=== PATIENT | male | born 1985 | race Caucasian/White ===

== ENCOUNTER 2023-06-05 13:49 | Inpatient (IN) ==
--- NOTE | 2023-06-05 14:40 | Emergency Department Note ---
Impression & Plan Status epilepticus, Epileptic seizure, Intractable seizure disorder ED Provider Note NAME: TOMMY [id number] JOSE MANUEL AGE: 37 SEX: M : 1985 ARRIVES VIA: Ambulance INFORMANT: Patient ED PROVIDER(S): Noah Rene DO CHIEF COMPLAINT: seizure HPI: Patient is a 37-year-old male with a past medical history of seizures who presents to the ER for a seizure. Patient notes that he has had seizure for multiple years. He recently stopped taking his Keppra and has not taken it for the past week. Last seizure was about a week ago. The seizure was consistent with his typical seizure. He notes he passed out and he became rigid per report from EMS. This lasted for about 7 minutes and was transferred to the ER. He denies any headache or change in vision. He admits to some paresthesias on the right side of his body which is typical for all of the seizures and generally last for a day. He denies any weakness or numbness as he can feel he does have some tingling. He does have some back pain which started after the seizure. He did not fall. ADDITIONAL HISTORY OBTAINED: Per HPI Chronic Medical/Social Conditions Affecting Care: Per HPI PAST MEDICAL HISTORY:See Below PAST SURGICAL HISTORY:See Below FAMILY HISTORY:See Below SOCIAL HISTORY:See Below HOME MEDICATIONS:See Below ALLERGIES:See Below VITALS:See Below PHYSICAL EXAMINATION: GENERAL: Sitting up in bed, alert, well appearing, well nourished, no distress, non-toxic EYE EXAM: normal conjunctiva. PERRL and EOM's grossly intact. OROPHARYNX: mucous membranes are moist NECK: supple, no nuchal rigidity, no adenopathy, non-tender LUNGS: Clear to auscultation. Normal chest wall mechanics HEART: no murmurs, S1 normal and S2 normal ABDOMEN: abdomen soft, non-tender, normo-active bowel sounds, no masses, no rebound or guarding. BACK: Back is symmetrical on inspection and there is no deformity, no midline tenderness, no CVA tenderness. SKIN: no rashes and no bruising UPPER EXTREMITIES: upper extremities are grossly normal. LOWER EXTREMITIES: No pitting edema. NEURO EXAM: Normal sensorium, cranial nerves II-XII intact, normal speech, no weakness of arms, no weakness of legs. No drift. Finger to nose intact. Gross sensation intact. MEDICAL DECISION MAKING: Patient is a 37-year-old male with a past medical history of epilepsy who has not been taking his medications for the past week. He presents following a 5 to 7-minute seizure. IV was established blood work was obtained. He is completely back to baseline at this time with exception of right-sided paresthesias which is typical for him. IV was established blood work is obtained. Labs show no significant leukocytosis or anemia. BMP along LFTs bilirubin was unremarkable. Troponin was negative. Lipase normal. COVID-negative. CT of the head was unremarkable. He had another seizure while in the ER and was given Ativan and it broke just prior to dose of Ativan. He did return to baseline. He was given IV Keppra. He was given 2 g Keppra IV. He was discussed with the hospitalist and admitted for status epilepticus. Consults/Care Managements Discussions: Per [facility] Triage Nursing notes reviewed. Limited review of prior medical records performed Vital Signs: reviewed and remarkable for tachy Differential diagnosis: Differential diagnosis includes etiologies such as infection, hypoglycemia, electrolyte abnormalities, cardiac sources, intracerebral event, trauma, toxicologic, neurologic, as well as others were entertained. ER treatment provided: See below Diagnostics interpreted by me include EKG and cardiac monitoring as listed below: -Cardiac Monitoring: An order was placed for continuous cardiac monitoring. The monitor shows a rate of 101 with sinus rhythm. -ECG: Sinus rhythm rate of 107 Normal axis No PVCs QTc 451 -Laboratory studies:Interpreted by me as stated above in MDM and shown below. Imaging studies: Xrays: As interpreted by me: X-rays of lumbar spine showed no acute fracture Verbal AP upright 1 view of the chest shows no acute infiltrate CTs show: CT of the head was negative Procedures:none Critical Care: I have personally spent 32 minutes of critical care time in the direct management of this patient. This includes bedside care, interpretation of diagnostic studies, and testing, discussion with consultants, patient, and family members, and other required patient management activities. This 32 minutes is in excess of all separately billable procedures. Past Med/Surg History Medical History GERD (gastroesophageal reflux disease) HLD (hyperlipidemia) HTN (hypertension) TBI (traumatic brain injury) Seizure disorder Social History Smoking Status: Former smoker Feels Safe at Home: Yes Allergies Allergies Allergy/AdvReac Type Severity Reaction Status Date / Time aripiprazole [From Abilify] Allergy Severe ON SCI Verified 06/05/23 16:04 [facility] Fish Containing Products Allergy Severe ON SCI Verified 06/05/23 16:04 [facility] Home Meds Home Medications Medication Instructions Recorded Confirmed atorvastatin 10 mg tablet (Lipitor) 10 mg PO HS 06/05/23 06/05/23 famotidine 20 mg tablet (Pepcid) 20 mg PO HS 06/05/23 06/05/23 levetiracetam 500 mg tablet 500 mg PO BID 06/05/23 06/05/23 (Keppra) lisinopril 10 mg tablet 10 mg PO HS 06/05/23 06/05/23 venlafaxine 100 mg tablet 100 mg PO HS 06/05/23 06/05/23 Results & Data (ED) Vital Signs Vital Signs - 24 hr 06/05/23 14:01 06/05/23 14:16 06/05/23 14:22 Temperature 37 C Temperature Source Oral Pulse Rate 108 H 110 H 110 H Pulse Rate [Apical] Pulse Rate from SpO2 Sensor 110 H Pulse Rhythm Respiratory Rate 18 15 Respiratory Effort / Characteristics Non-Labored Respiratory Depth Normal Respiratory Pattern Blood Pressure 138/76 Blood Pressure [Right Arm] Blood Pressure Mean 96 Blood Pressure Mean [Right Arm] Pulse Oximetry 95 95 Oxygen Delivery Method Room Air Oxygen Flow Rate Sepsis Recent Fever Within 48 Hours No Sepsis New/Unexplained Change in Mental Status N/A Sepsis Action Taken by Nursing No Action Required Oxygen Flow Rate - Titration Pulse Oximetry Post Tiitration 06/05/23 14:30 06/05/23 14:45 06/05/23 15:05 Temperature Temperature Source Pulse Rate 112 H 103 H 107 H Pulse Rate [Apical] Pulse Rate from SpO2 Sensor 110 H 105 H Pulse Rhythm Respiratory Rate 18 22 21 Respiratory Effort / Characteristics Respiratory Depth Respiratory Pattern Blood Pressure Blood Pressure [Right Arm] Blood Pressure Mean Blood Pressure Mean [Right Arm] Pulse Oximetry 94 96 Oxygen Delivery Method Oxygen Flow Rate Sepsis Recent Fever Within 48 Hours Sepsis New/Unexplained Change in Mental Status Sepsis Action Taken by Nursing Oxygen Flow Rate - Titration Pulse Oximetry Post Tiitration 06/05/23 15:15 06/05/23 15:15 06/05/23 15:22 Temperature Temperature Source Pulse Rate 106 H 100 H Pulse Rate [Apical] Pulse Rate from SpO2 Sensor Pulse Rhythm Regular Respiratory Rate 20 16 Respiratory Effort / Characteristics Respiratory Depth Respiratory Pattern Blood Pressure 127/89 Blood Pressure [Right Arm] Blood Pressure Mean 95 Blood Pressure Mean [Right Arm] Pulse Oximetry 96 Oxygen Delivery Method Room Air Oxygen Flow Rate Sepsis Recent Fever Within 48 Hours Sepsis New/Unexplained Change in Mental Status Sepsis Action Taken by Nursing Oxygen Flow Rate - Titration Pulse Oximetry Post Tiitration 06/05/23 15:22 06/05/23 15:30 06/05/23 15:30 Temperature Temperature Source Pulse Rate 98 H 92 H Pulse Rate [Apical] Pulse Rate from SpO2 Sensor 98 H 95 H Pulse Rhythm Respiratory Rate 19 22 Respiratory Effort / Characteristics Respiratory Depth Respiratory Pattern Blood Pressure 144/90 H Blood Pressure [Right Arm] Blood Pressure Mean 101 Blood Pressure Mean [Right Arm] Pulse Oximetry 94 95 Oxygen Delivery Method Oxygen Flow Rate Sepsis Recent Fever Within 48 Hours Sepsis New/Unexplained Change in Mental Status Sepsis Action Taken by Nursing Oxygen Flow Rate - Titration Pulse Oximetry Post Tiitration 06/05/23 15:45 06/05/23 16:02 06/05/23 16:03 Temperature Temperature Source Pulse Rate 102 H 101 H 105 H Pulse Rate [Apical] Pulse Rate from SpO2 Sensor 98 H 99 H 102 H Pulse Rhythm Respiratory Rate 15 22 16 Respiratory Effort / Characteristics Respiratory Depth Respiratory Pattern Blood Pressure Blood Pressure [Right Arm] Blood Pressure Mean Blood Pressure Mean [Right Arm] Pulse Oximetry 97 96 96 Oxygen Delivery Method Oxygen Flow Rate Sepsis Recent Fever Within 48 Hours Sepsis New/Unexplained Change in Mental Status Sepsis Action Taken by Nursing Oxygen Flow Rate - Titration Pulse Oximetry Post Tiitration 06/05/23 16:03 06/05/23 16:15 06/05/23 16:30 Temperature Temperature Source Pulse Rate 100 H 95 H Pulse Rate [Apical] Pulse Rate from SpO2 Sensor 100 H 98 H Pulse Rhythm Respiratory Rate 23 20 Respiratory Effort / Characteristics Respiratory Depth Respiratory Pattern Blood Pressure 139/98 Blood Pressure [Right Arm] Blood Pressure Mean 115 Blood Pressure Mean [Right Arm] Pulse Oximetry 96 97 Oxygen Delivery Method Oxygen Flow Rate Sepsis Recent Fever Within 48 Hours Sepsis New/Unexplained Change in Mental Status Sepsis Action Taken by Nursing Oxygen Flow Rate - Titration Pulse Oximetry Post Tiitration 06/05/23 16:30 06/05/23 16:45 06/05/23 17:00 Temperature Temperature Source Pulse Rate 106 H Pulse Rate [Apical] Pulse Rate from SpO2 Sensor 108 H Pulse Rhythm Respiratory Rate 19 Respiratory Effort / Characteristics Respiratory Depth Respiratory Pattern Blood Pressure 117/83 132/95 Blood Pressure [Right Arm] Blood Pressure Mean 98 103 Blood Pressure Mean [Right Arm] Pulse Oximetry 95 Oxygen Delivery Method Oxygen Flow Rate Sepsis Recent Fever Within 48 Hours Sepsis New/Unexplained Change in Mental Status Sepsis Action Taken by Nursing Oxygen Flow Rate - Titration Pulse Oximetry Post Tiitration 06/05/23 17:00 06/05/23 17:15 06/05/23 17:26 Temperature Temperature Source Pulse Rate 99 H 108 H Pulse Rate [Apical] 98 H Pulse Rate from SpO2 Sensor 99 H 106 H Pulse Rhythm Respiratory Rate 23 21 20 Respiratory Effort / Characteristics Non-Labored Respiratory Depth Normal Respiratory Pattern Blood Pressure Blood Pressure [Right Arm] 130/110 H Blood Pressure Mean Blood Pressure Mean [Right Arm] 116 Pulse Oximetry 96 96 97 Oxygen Delivery Method Room Air Oxygen Flow Rate Sepsis Recent Fever Within 48 Hours Sepsis New/Unexplained Change in Mental Status Sepsis Action Taken by Nursing Oxygen Flow Rate - Titration Pulse Oximetry Post Tiitration 06/05/23 17:27 06/05/23 17:27 06/05/23 17:30 Temperature Temperature Source Pulse Rate 92 H 101 H Pulse Rate [Apical] Pulse Rate from SpO2 Sensor 99 H 101 H Pulse Rhythm Respiratory Rate 16 17 Respiratory Effort / Characteristics Respiratory Depth Respiratory Pattern Blood Pressure 130/110 H Blood Pressure [Right Arm] Blood Pressure Mean 116 Blood Pressure Mean [Right Arm] Pulse Oximetry 91 96 Oxygen Delivery Method Oxygen Flow Rate Sepsis Recent Fever Within 48 Hours Sepsis New/Unexplained Change in Mental Status Sepsis Action Taken by Nursing Oxygen Flow Rate - Titration Pulse Oximetry Post Tiitration 06/05/23 17:30 06/05/23 17:45 06/05/23 18:00 Temperature Temperature Source Pulse Rate 105 H 105 H Pulse Rate [Apical] Pulse Rate from SpO2 Sensor 101 H 105 H Pulse Rhythm Respiratory Rate 19 21 Respiratory Effort / Characteristics Respiratory Depth Respiratory Pattern Blood Pressure 133/88 Blood Pressure [Right Arm] Blood Pressure Mean 105 Blood Pressure Mean [Right Arm] Pulse Oximetry 95 97 Oxygen Delivery Method Oxygen Flow Rate Sepsis Recent Fever Within 48 Hours Sepsis New/Unexplained Change in Mental Status Sepsis Action Taken by Nursing Oxygen Flow Rate - Titration Pulse Oximetry Post Tiitration 06/05/23 18:00 06/05/23 18:15 06/05/23 18:28 Temperature Temperature Source Pulse Rate 96 H 97 H Pulse Rate [Apical] Pulse Rate from SpO2 Sensor 94 H Pulse Rhythm Respiratory Rate 17 Respiratory Effort / Characteristics Respiratory Depth Respiratory Pattern Blood Pressure 130/91 Blood Pressure [Right Arm] Blood Pressure Mean 100 Blood Pressure Mean [Right Arm] Pulse Oximetry 96 Oxygen Delivery Method Oxygen Flow Rate Sepsis Recent Fever Within 48 Hours Sepsis New/Unexplained Change in Mental Status Sepsis Action Taken by Nursing Oxygen Flow Rate - Titration Pulse Oximetry Post Tiitration 06/05/23 19:00 06/05/23 19:47 06/05/23 21:00 Temperature Temperature Source Pulse Rate Pulse Rate [Apical] 82 79 Pulse Rate from SpO2 Sensor Pulse Rhythm Respiratory Rate 16 16 Respiratory Effort / Characteristics Non-Labored Respiratory Depth Normal Respiratory Pattern Regular Blood Pressure Blood Pressure [Right Arm] 125/77 114/75 Blood Pressure Mean Blood Pressure Mean [Right Arm] 93 88 Pulse Oximetry 98 95 96 Oxygen Delivery Method Room Air Room Air Oxygen Flow Rate 0 Sepsis Recent Fever Within 48 Hours Sepsis New/Unexplained Change in Mental Status Sepsis Action Taken by Nursing Oxygen Flow Rate - Titration 0 Pulse Oximetry Post Tiitration 95 Laboratory Data 06/05/23 14:05 06/05/23 14:05 Lab Results 06/05/23 06/05/23 Range/Units 14:05 Unknown WBC 8.05 (4.8-10.8) K/ul RBC 5.72 (4.70-6.10) M/uL Hgb 17.9 (14.0-18.0) g/dl Hct 47.1 (42.0-52.0) % MCV 82.3 (80.0-100.0) fL MCH 31.3 (25.0-34.0) pg MCHC 38.0 H (32.0-36.0) g/dL RDW Std Deviation 36.8 (36.4-46.3) fL RDW Coeff of Radha 12.4 (11.5-14.5) % Plt Count 177 (130-400) K/uL MPV 11.4 (9.4-12.4) fL Immature Gran % (Auto) 0.2 % Neut % (Auto) 69.0 % Lymph % (Auto) 21.4 % Winkler % (Auto) 7.3 % Eos % (Auto) 1.7 % Baso % (Auto) 0.4 % Neut # (Auto) 5.55 (1.40-6.50) K/uL Lymph # (Auto) 1.72 (1.20-3.40) K/uL Winkler # (Auto) 0.59 (0.11-0.59) K/uL Eos # (Auto) 0.14 (0.00-0.50) K/uL Baso # (Auto) 0.03 (0.00-0.20) K/uL Immature Gran # (Auto) 0.02 (0.01-0.20) K/uL Sodium 138 (136-145) mmol/L Potassium 3.7 (3.5-5.1) mmol/L Chloride 103 (98-107) mmol/L Carbon Dioxide 26 (21-32) mmol/L Anion Gap 9 (3-11) BUN 15 (6-23) mg/dl Creatinine 0.76 (0.6-1.4) mg/dl Est Cr Clr Drug Dosing 131.0 ml/min Est GFR ( Amer) 134.1 ml/min Est GFR (Non-Af Amer) 115.7 ml/min BUN/Creatinine Ratio 19.7 (10-20) Glucose 137 H (70-99(Fasting)) mg/dl Calcium 9.3 (8.6-10.3) mg/dl Total Bilirubin 0.7 (0.2-1.0) mg/dl AST 32 (13-39) U/L ALT 55 H (7-52) U/L Alkaline Phosphatase 66 (34-104) U/L Troponin I High Sens 3.4 (0-20) pg/ml Total Protein 7.2 (6.0-8.3) gm/dl Albumin 4.8 (3.4-5.0) gm/dl Globulin TNP Albumin/Globulin Ratio TNP Lipase 15 (11-82) U/L SARS-CoV-2, RNA, NAAT NEGATIVE (NEGATIVE) Administered Medications Discontinued Medications Sodium Chloride (Nss) 1,000 mls @ 999 mls/hr IV .Q1H1M ONE Stop: 06/05/23 15:40 Last Infusion: 06/05/23 17:30 Dose: Infused Documented By: MMLico Admin: 06/05/23 15:28 Dose: 999 mls/hr Documented By: SWD Levetiracetam (Levetiracetam 500 Mg/5 Ml Vial) 2,000 mg IV NOW STA Stop: 06/05/23 15:50 Last Admin: 06/05/23 16:09 Dose: 2,000 mg Documented By: CELINA Lorazepam (Lorazepam 1 Mg/1 Ml Syr Ed Inj Use) Confirm Administered Dose 2 mg .ROUTE .STK-MED ONE Stop: 06/05/23 15:42 Last Admin: 06/05/23 15:44 Dose: 2 mg Documented By: CELINA Lorazepam (Lorazepam 1 Mg/1 Ml Syr Ed Inj Use) Confirm Administered Dose 1 mg .ROUTE .STK-MED ONE Stop: 06/05/23 17:25 Last Admin: 06/05/23 17:48 Dose: Not Given Documented By: MORENO Imaging Data Radiologist's Impression: Chest X-Ray 06/05/23 14:23 XR chest 1V not portable CLINICAL HISTORY: Chest pain, nonspecific TECHNIQUE: Single frontal radiograph of the chest was obtained. Comparison: None available at the time of this dictation. FINDINGS: No lines and tubes are seen. The cardiomediastinal silhouette is normal. The lungs are clear. No evidence of pleural effusion or pneumothorax. IMPRESSION: No acute chest disease. ACT 112: Negative or not required by law. Electronically signed by: Ty Tong M.D. 06/05/2023 4:[address] 06/05/23 14:40 CT head/brain wo con CLINICAL HISTORY: 37 years-old Male with seizure. Acute seizure-like activity TECHNIQUE: Multiple axial CT images of the head were obtained without contrast. A dose lowering technique was utilized adhering to the principles of ALARA. CT DOSE: 547.75 mGy.cm COMPARISON: None. FINDINGS: No acute intracranial hemorrhage, midline shift, intracranial mass, hydrocephalus, territorial ischemia or abnormal extra-axial collection. The calvarium is intact. The paranasal sinuses, mastoid air cells, and middle ear cavities are clear. IMPRESSION: No acute intracranial abnormality. ACT 112: Negative or not required by law. The above report was generated using voice recognition software. It may contain grammatical, syntax or spelling errors. Electronically signed by: Tommy Ruiz M.D. 06/05/2023 3:25 PM Lumbar Spine X-Ray 06/05/23 14:40 XR lumbar spine 2-3V HISTORY: 37 years-old Male back pain acute low back pain without reported trauma COMPARISON: Chest radiograph of same day TECHNIQUE: 3 views of the lumbar spine FINDINGS: Normal soft tissues. No acute fracture, subluxation or endplate erosion. The intervertebral disc spaces are generally well maintained. No spondylolysis or spondylolisthesis. IMPRESSION: No acute osseous abnormality. ACT 112: Negative or not required by law. The above report was generated using voice recognition software. It may contain grammatical, syntax or spelling errors. Electronically signed by: Tommy Ruiz M.D. 06/05/2023 4:23 PM Discharge Plan Visit Data Chief Complaint: Seizure Stated Complaint: SEIZURE ED Provider: Noah Rene Discharge Problem: Status epilepticus, Epileptic seizure, Intractable seizure disorder Forms Stand Alone Forms: My [facility] Prescriptions Prescriptions: No Action atorvastatin [Lipitor] 10 mg Tablet 10 mg PO HS Rx Instructions: CRUSH ALL MEDS levetiracetam [Keppra] 500 mg Tablet 500 mg PO BID Rx Instructions: CRUSH ALL MEDS venlafaxine [Effexor] 100 mg Tablet 100 mg PO HS Rx Instructions: CRUSH ALL MEDS famotidine [Pepcid] 20 mg Tablet 20 mg PO HS Rx Instructions: CRUSH ALL MEDS lisinopril 10 mg Tablet 10 mg PO HS Rx Instructions: CRUSH ALL MEDS Referrals Referrals: PCP,NO [Physician] -
[2023-06-05 14:43] LABS: Basophils # (auto) 0.03 K/uL (0.00-0.20); Basophils % (auto) 0.4 %; Eosinophils # (auto) 0.14 K/uL (0.00-0.50); Eosinophils % (auto) 1.7 %; Hematocrit (blood only) 47.1 % (42.0-52.0); Hemoglobin 17.9 g/dl (14.0-18.0); Immature Granulocytes # (auto) 0.02 K/uL (0.01-0.20); Immature Granulocytes % (auto) 0.2 %; Lymphocytes # (auto) 1.72 K/uL (1.20-3.40); Lymphocytes % (auto) 21.4 %; Mean Corpuscular Hemoglobin 31.3 pg (25.0-34.0); Mean Corpuscular Volume 82.3 fL (80.0-100.0); Mean Platelet Volume 11.4 fL (9.4-12.4); Monocytes # (auto) 0.59 K/uL (0.11-0.59); Monocytes % (auto) 7.3 %; Neutrophils # (auto) 5.55 K/uL (1.40-6.50); Platelet Count 177 K/uL (130-400); RDW Coefficient of Variation 12.4 % (11.5-14.5); RDW Standard Deviation 36.8 fL (36.4-46.3); Red Blood Count 5.72 M/uL (4.70-6.10); White Blood Count 8.05 K/ul (4.8-10.8)
--- NOTE | 2023-06-05 15:26 | CT Scan Report ---
CT head/brain wo con CLINICAL HISTORY: 37 years-old Male with seizure. Acute seizure-like activity TECHNIQUE: Multiple axial CT images of the head were obtained without contrast. A dose lowering tech nique was utilized adhering to the principles of ALARA. CT DOSE: 547.75 mGy.cm COMPARISON: None. FINDINGS: No acute intracranial hemorrhage, midline shift, intracranial mass, hydrocephalus, territorial ischem ia or abnormal extra-axial collection. The calvarium is intact. The paranasal sinuses, mastoid air cells, and middle ear cavities are clear . IMPRESSION: No acute intracranial abnormality. ACT 112: Negative or not required by law. The above report was generated using voice recognition software. It may contain grammatical, syntax o r spelling errors. Electronically signed by: Tommy Ruiz M.D. 06/05/2023 3:25 PM
[2023-06-05] MEDS: SODIUM CHLORIDE 0.9% 1,000 ML IV ONE (15:28)
[2023-06-05] MEDS: LORazepam 1 MG/1 ML SYR ED Inj Use ONE ×2 (15:44→17:48)
[2023-06-05] MEDS: levETIRAcetam 500 MG/5 ML VIAL IV STA (16:09)
--- NOTE | 2023-06-05 16:24 | XRay Report ---
XR lumbar spine 2-3V HISTORY: 37 years-old Male back pain acute low back pain without reported trauma COMPARISON: Chest radiograph of same day TECHNIQUE: 3 views of the lumbar spine FINDINGS: Normal soft tissues. No acute fracture, subluxation or endplate erosion. The intervertebral disc spac es are generally well maintained. No spondylolysis or spondylolisthesis. IMPRESSION: No acute osseous abnormality. ACT 112: Negative or not required by law. The above report was generated using voice recognition software. It may contain grammatical, syntax o r spelling errors. Electronically signed by: Tommy Ruiz M.D. 06/05/2023 4:23 PM
[2023-06-05 16:25] LABS: Troponin I High Sensitivity 3.4 pg/ml (0-20)
--- NOTE | 2023-06-05 16:32 | XRay Report ---
XR chest 1V not portable CLINICAL HISTORY: Chest pain, nonspecific TECHNIQUE: Single frontal radiograph of the chest was obtained. Comparison: None available at the time of this dictation. FINDINGS: No lines and tubes are seen. The cardiomediastinal silhouette is normal. The lungs are clear. No evid ence of pleural effusion or pneumothorax. IMPRESSION: No acute chest disease. ACT 112: Negative or not required by law. Electronically signed by: Ty Tong M.D. 06/05/2023 4:31 PM
[2023-06-05 16:57] LABS: Albumin Level 4.8 gm/dl (3.4-5.0); Anion Gap 9 (3-11); Bilirubin,Total 0.7 mg/dl (0.2-1.0); Calcium 9.3 mg/dl (8.6-10.3); Carbon Dioxide 26 mmol/L (21-32); Chloride 103 mmol/L (98-107); Potassium 3.7 mmol/L (3.5-5.1); Sodium 138 mmol/L (136-145)
[2023-06-05 17:05] LABS: Alanine Aminotransferase 55 U/L (7-52); Alkaline Phosphatase 66 U/L (34-104); Aspartate Aminotransferase 32 U/L (13-39); BUN Creatinine Ratio 19.7 (10-20); Blood Urea Nitrogen 15 mg/dl (6-23); Est GFR (African American) 134.1 ml/min; Est GFR (Non-African American) 115.7 ml/min; Glucose 137 mg/dl (70-99(Fasting)); Lipase 15 U/L (11-82); Total Protein 7.2 gm/dl (6.0-8.3)
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
[2023-06-05] MEDS: GADOBUTROL 65ML VIAL IV ONE (22:17)
[2023-06-05] MEDS ORDERED: LORazepam 2 MG in SYRINGE 1 ML IV PRN (22:36)
--- NOTE | 2023-06-05 23:16 | Magnetic Resonance Report ---
Exam(s): MRI HEAD W/WO Contrast IV Amt: 7cc gadavist EXAM: MR Head Without and With Intravenous Contrast CLINICAL HISTORY: Reason for exam: recurrent seizure, eye pressure before onset. TECHNIQUE: Magnetic resonance images of the head/brain without and with intravenous contrast in multiple planes. CONTRAST: Patient received 7cc gadavist of IV contrast COMPARISON: CT brain 06/05/2023. FINDINGS: Brain: Unremarkable. No mass. No hemorrhage. No acute infarct. Ventricles: Unremarkable. No ventriculomegaly. Bones/joints: Unremarkable. No acute fracture. Soft tissues: Unremarkable. Normal enhancement following contrast administration with no enhancing lesion seen. Sinuses: Unremarkable as visualized. No acute sinusitis. Mastoid air cells: Unremarkable as visualized. No mastoid effusion. Orbits: Unremarkable as visualized. IMPRESSION: Normal MRI of the brain with no acute stroke or intracranial hemorrhage. No enhancing intracranial lesions seen. Electronically signed by: Kati Cota MD 06/05/23 23:15 PM
[2023-06-05] MEDS: FAMOTIDINE 20 MG TAB PO SCH (23:45)
[2023-06-05] MEDS: ATORVASTATIN 10 MG TAB PO SCH (23:45)
[2023-06-05] MEDS: lisinopril 10 MG TAB PO SCH (23:46)
[2023-06-05] MEDS: VENLAFAXINE HCL 50 MG TAB PO SCH (23:46)
[2023-06-05] MEDS: levETIRAcetam IV 500 MG in SODIUM CHLOR 0.9% MINI-B 100 ML IV SCH (23:46)
--- NOTE | 2023-06-06 06:01 | Electrocardiogram Report ---
Test Reason : Blood Pressure : / mmHG Vent. Rate : 107 BPM Atrial Rate : 107 BPM P-R Int : 160 ms QRS Dur : 088 ms QT Int : 338 ms P-R-T Axes : 061 058 066 degrees QTc Int : 451 ms Sinus tachycardia Otherwise normal ECG No previous ECGs available Confirmed by Martín Andrade ([id number]) on 06/06/2023 6:00:55 AM Referred By: [facility] SCI Confirmed By:Martín Andrade
[2023-06-06 07:12] LABS: Hematocrit (blood only) 48.2 % (42.0-52.0); Hemoglobin 17.4 g/dl (14.0-18.0); Mean Corpuscular Hemoglobin 30.6 pg (25.0-34.0); Mean Corpuscular Hgb Conc 36.1 g/dL (32.0-36.0); Mean Corpuscular Volume 84.7 fL (80.0-100.0); Platelet Count 159 K/uL (130-400); RDW Coefficient of Variation 12.5 % (11.5-14.5); Red Blood Count 5.69 M/uL (4.70-6.10); White Blood Count 7.81 K/ul (4.8-10.8)
[2023-06-06 07:32] LABS: BUN Creatinine Ratio 19.2 (10-20); Calcium 9.2 mg/dl (8.6-10.3); Creatinine Clr Calc Pharmacy 69.4 ml/min; Est GFR (African American) 135.4 ml/min; Est GFR (Non-African American) 116.8 ml/min
[2023-06-06] MEDS ORDERED: ALUMINUM/MAGNESIUM SUSP 30 ML UDC PO PRN (12:02)
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
--- NOTE | 2023-06-06 14:37 | Electroencephalogram ---
EEG Procedure Note Date of Service June 06, 2023 Start / End Times Start Time: 06:17 End Time: 06:37 Referring Physician HAYLEE Felipe History A 38-year-old male with possible seizure. EEG performed for evaluation of epileptiform activity. Home Medication List Medication Instructions Recorded Confirmed Type atorvastatin 10 mg tablet (Lipitor) 10 mg PO HS 06/05/23 06/05/23 History famotidine 20 mg tablet (Pepcid) 20 mg PO HS 06/05/23 06/05/23 History levetiracetam 500 mg tablet 500 mg PO BID 06/05/23 06/05/23 History (Keppra) lisinopril 10 mg tablet 10 mg PO HS 06/05/23 06/05/23 History venlafaxine 100 mg tablet 100 mg PO HS 06/05/23 06/05/23 History Inpatient Medication List Atorvastatin Calcium (Atorvastatin 10 Mg Tab) 10 mg PO [facility] Stop: 07/05/23 22:35 Last Admin: 06/05/23 23:45 Dose: 10 mg Documented By: SARAH Famotidine (Famotidine 20 Mg Tab) 20 mg PO [facility] Stop: 07/05/23 22:35 Last Admin: 06/05/23 23:45 Dose: 20 mg Documented By: SARAH Levetiracetam 500 mg/ Sodium (Chloride) 105 mls @ 420 mls/hr IV Q12H [facility]ADAY Stop: 07/06/23 00:00 Last Infusion: 06/06/23 12:32 Dose: Infused Documented By: PO Admin: 06/06/23 12:08 Dose: 420 mls/hr Documented By: PO Infusion: 06/06/23 00:01 Dose: Infused Documented By: Admin: 06/05/23 23:46 Dose: 420 mls/hr Documented By: SARAH Lisinopril (Lisinopril 10 Mg Tab) 10 mg PO [facility] Stop: 07/05/23 22:35 Last Admin: 06/05/23 23:46 Dose: 10 mg Documented By: SARAH Venlafaxine HCl (Venlafaxine Hcl 50 Mg Tab) 100 mg PO [facility] Stop: 07/05/23 22:35 Last Admin: 06/05/23 23:46 Dose: 100 mg Documented By: SARAH Discontinued Medications Gadobutrol (Gadobutrol 65ml Vial) 7 ml IV ONCE ONE Stop: 06/05/23 22:18 Last Admin: 06/05/23 22:17 Dose: 7 ml Documented By: LAYLA Sodium Chloride (Nss) 1,000 mls @ 999 mls/hr IV .Q1H1M ONE Stop: 06/05/23 15:40 Last Infusion: 06/05/23 17:30 Dose: Infused Documented By: Admin: 06/05/23 15:28 Dose: 999 mls/hr Documented By: CELINA Levetiracetam (Levetiracetam 500 Mg/5 Ml Vial) 2,000 mg IV NOW STA Stop: 06/05/23 15:50 Last Admin: 06/05/23 16:09 Dose: 2,000 mg Documented By: CELINA Lorazepam (Lorazepam 1 Mg/1 Ml Syr Ed Inj Use) Confirm Administered Dose 2 mg .ROUTE .STK-MED ONE Stop: 06/05/23 15:42 Last Admin: 06/05/23 15:44 Dose: 2 mg Documented By: CELINA Lorazepam (Lorazepam 1 Mg/1 Ml Syr Ed Inj Use) Confirm Administered Dose 1 mg .ROUTE .STK-MED ONE Stop: 06/05/23 17:25 Last Admin: 06/05/23 17:48 Dose: Not Given Documented By: MMG Description This is a 21 electrode EEG with a single channel dedicated to limited EKG. The electrodes were placed in accordance with the International 10-20 system. Report: At the onset of the EEG the patient is awake. The background is continuous and well organized. The posterior dominant rhythm is 9-10 Hz. There is low amplitude faster frequencies in the frontal head region. There is a normal anterior to posterior gradient. Photic stimulation does not induce any abnormalities. Drowsiness is characterized by reduced blink rate, decreased myogenic artifact, and increased theta activity. No stage 2 sleep transients are seen. Interpretation Impression: This is a normal awake and drowsy routine EEG. There is no evidence of focal slowing or epileptiform activity.
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
[2023-06-07] MEDS: ACETAMINOPHEN 325 MG TAB PO PRN (00:04)
[2023-06-07 01:11] LABS: Amphetamines+Metham, Urine Neg (Neg); Barbiturates, Urine Neg (Neg); Benzodiazepine, Urine Neg (Neg); Cocaine, Urine Neg (Neg); MDMA (Ecstacy), Urine Neg (Neg); Marijuana, Urine Neg (Neg); Methadone, Urine Neg (Neg); Opiate, Urine Neg (Neg); Phencyclidine, Urine Neg (Neg)
[2023-06-07 06:38] LABS: Hematocrit (blood only) 45.6 % (42.0-52.0); Hemoglobin 16.8 g/dl (14.0-18.0); Mean Corpuscular Hemoglobin 31.1 pg (25.0-34.0); Mean Corpuscular Hgb Conc 36.8 g/dL (32.0-36.0); Mean Corpuscular Volume 84.3 fL (80.0-100.0); Mean Platelet Volume 11.4 fL (9.4-12.4); Platelet Count 171 K/uL (130-400); RDW Coefficient of Variation 12.4 % (11.5-14.5); RDW Standard Deviation 37.8 fL (36.4-46.3); Red Blood Count 5.41 M/uL (4.70-6.10); White Blood Count 7.76 K/ul (4.8-10.8)
[2023-06-07 07:08] LABS: BUN Creatinine Ratio 28.4 (10-20); Calcium 8.8 mg/dl (8.6-10.3); Creatinine Clr Calc Pharmacy 68.4 ml/min; Est GFR (African American) 134.7 ml/min; Est GFR (Non-African American) 116.2 ml/min; Phosphorus 4.5 mg/dl (2.5-4.9); Potassium 3.9 mmol/L (3.5-5.1)
--- NOTE | 2023-06-07 10:22 | Communication Note ---
Date of Service: June 07, 2023 Neurology update: 38 y/o male with history of seizures, borderline personality disorder, and HTN that presented following a possible breakthrough seizure. P reviously on phenobarbital and dilantin per patient. Currently on keppra 500 mg bid but difficulty tolerating due to changes in cognition. Correctional facility contacted and provider at facility indicated that pt had previously been on dilantin as well as depakote, although it is unclear why those medications were discontinued. No additional information available regarding the pt's seizure history or prior medication regimens. Given difficulty tolerating keppra, would proceed with discontinuing keppra. Would initiate vimpat with vimpat 200 mg IV load and continue maintenance dose of vimpat 100 mg bid. Pt would likely benefit from follow-up with neurology as outpatient. Recommend seizure precautions and no driving per state law (although inmate).
[2023-06-07] MEDS: LACOSAMIDE 200 MG in SODIUM CHLORIDE 0.9% 50 ML IV ONE (11:39)
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
[2023-06-07] MEDS: LACOSAMIDE 50 MG TABLET PO SCH (21:28)
[2023-06-08] MEDS ORDERED: LACOSAMIDE 50 MG TABLET PO SCH
[2023-06-08 07:25] LABS: BUN Creatinine Ratio 20.9 (10-20); Calcium 8.8 mg/dl (8.6-10.3); Creatinine Clr Calc Pharmacy 75.6 ml/min; Est GFR (African American) 140.3 ml/min; Potassium 3.9 mmol/L (3.5-5.1)
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
== END 2023-06-08 13:58 | DRG 101 ==
LOC: ED 13:49 → 4W 16:27 → SUATTDRO 16:27 → 4W 06-06 06:01

== ENCOUNTER 2024-01-08 21:32 | Observation (INO) ==
[2024-01-08 21:50] VITALS: TEMP 99.1
[2024-01-08 22:16] LABS: iSTAT Creatinine 0.8 mg/dl (0.6-1.3); iSTAT Hemoglobin 15.3 g/dl (14.0-18.0); iSTAT Ionized Calcium 1.18 mmol/l (1.12-1.32)
[2024-01-08] MEDS: OPTIRAY 320 125ml IV ONE (22:19)
--- NOTE | 2024-01-08 22:28 | Emergency Department Note ---
History of Present Illness General Chief complaint: Overdose (Intentional) Time Seen by Provider: 01/08/24 21:54 History of Present Illness Maximum Pain Intensity: 9 This 38-year-old prisoner presents ER for suicide attempt with hanging. Patient states he took 20 tablets of a combination of lisinopril 20 mg tablets, Lipitor 10 mg tablet, Effexor 75 mg tablets extended release and meclizine 12.5 mg tablets. Patient took this just prior to arrival. Patient is not sure of how many beats she took but states he took 20 tablets. He states he was storing them. He then attempted to hang himself with a sheet. The hearing officer sprayed him to get him off the sheet. The hearing officer states that the sheet was shredded. Patient current complains of neck pain, abdominal pain and suicidal. Patient denies chest pain, fever, chills, cough, congestion, numbness, tingling, localized weakness. He is asking for pain meds. He denies any other ingestions. Home Medications Medication Instructions Recorded Confirmed Type atorvastatin 10 mg tablet (Lipitor) 10 mg PO HS 06/05/23 01/08/24 History famotidine 20 mg tablet (Pepcid) 20 mg PO HS 06/05/23 01/08/24 History lacosamide 100 mg tablet (Vimpat) 100 mg PO BID 01/08/24 01/08/24 History lisinopril 20 mg tablet 20 mg PO QAM 01/08/24 01/08/24 History meclizine 12.5 mg tablet 12.5 mg PO TID PRN Dizziness 01/08/24 01/08/24 History naproxen 500 mg tablet 500 mg PO BID PRN Pain 01/08/24 01/08/24 History venlafaxine 75 mg tablet 150 mg PO BID 01/08/24 01/08/24 History Allergies Allergy/AdvReac Type Severity Reaction Status Date / Time aripiprazole [From Abilify] Allergy Severe ON SCI Verified 01/08/24 23:02 Obs[facility]va MED LIST Fish Containing Products Allergy Severe ON SCI Verified 01/08/24 23:02 ObsEva MED LIST Past Med/Surg History Problem List (Updated 01/08/24 @ 23:36 by Carito Rubio PA-C) Suicide attempt by hanging (Acute) Suicide attempt by multiple drug overdose (Acute) Intractable seizure disorder (Acute) Epileptic seizure (Acute) Status epilepticus (Acute) GERD (gastroesophageal reflux disease) HLD (hyperlipidemia) Seizure HTN (hypertension) Medical History TBI (traumatic brain injury) Seizure disorder Social History Smoking Status: Former smoker Tobacco Type: Cigarettes Do You Dip or Chew Tobacco: No; Hx Alcohol Use: No Hx Substance Use: No Preferred Language: Singaporean Communication Ability: Effective Rehabilitation Therapist Required: No Beliefs That Will Affect Care: None Current Living Situation: Other [facility] Feels Safe at Home: Yes Assistive Devices: None Physical Exam Vital Signs Vital Signs - 24 hr 01/08/24 21:29 01/08/24 21:53 01/08/24 22:02 Temperature 37.3 C Temperature Source Oral Pulse Rate 101 H 98 H 104 H Pulse Rate [Left] Pulse Rhythm Regular Regular Pulse Rhythm [Left] Pulse Strength Normal Pulse Strength [Left] Respiratory Rate 20 20 Respiratory Effort / Characteristics Non-Labored Spontaneous Respiratory Depth Normal Respiratory Pattern Regular Blood Pressure 132/95 Blood Pressure [Right Arm] Blood Pressure Mean 107 Blood Pressure Mean [Right Arm] Blood Pressure Position Lying Blood Pressure Position [Right Arm] Pulse Oximetry 95 96 Oxygen Delivery Method Room Air Room Air Sepsis Recent Fever Within 48 Hours No Sepsis New/Unexplained Change in Mental Status N/A Sepsis Action Taken by Nursing No Action Required 01/08/24 22:05 01/08/24 22:05 Temperature 37.3 C Temperature Source Oral Pulse Rate Pulse Rate [Left] 104 H Pulse Rhythm Pulse Rhythm [Left] Regular Pulse Strength Pulse Strength [Left] Normal Respiratory Rate 20 Respiratory Effort / Characteristics Non-Labored Spontaneous Respiratory Depth Normal Respiratory Pattern Regular Blood Pressure Blood Pressure [Right Arm] 132/95 Blood Pressure Mean Blood Pressure Mean [Right Arm] 107 Blood Pressure Position Blood Pressure Position [Right Arm] Lying Pulse Oximetry 96 96 Oxygen Delivery Method Room Air Room Air Sepsis Recent Fever Within 48 Hours Sepsis New/Unexplained Change in Mental Status Sepsis Action Taken by Nursing VITALS: Vitals are noted on the nurse's note and reviewed by myself. Vital signs stable. GENERAL: White male in shackles C-collared, in no acute distress, nondiaphoretic, well-developed well-nourished. SKIN: No gutiérrez seen on the neck, the skin was without rashes, erythema, edema, or bruising. There is no tenting of the skin. Capillary reflex less than 2 seconds. HEAD: Normocephalic atraumatic. EARS: External auditory canals clear EYES: Pupils equal round and reactive to light and accommodation. Conjunctivae without injection, sclerae without icterus. Extraocular movements intact. NOSE: Patent, no discharge. MOUTH: Mucous membranes moist. Pharynx without erythema or exudate. Uvula midline. Airway patent. Tongue does not deviate. NECK: Supple without nuchal rigidity. No lymphadenopathy. No thyromegaly. Cervical spine is nontender. No JVD. HEART: Regular rate and rhythm LUNGS: Clear to auscultation bilaterally without wheezes, rales or rhonchi. No retractions or accessory muscle use. ABDOMEN: Positive bowel sounds x 4. Normal tympanic percussion. Soft, nontender, without masses or organomegaly. Lopes sign negative. No guarding or rebound tenderness. No CVA tenderness MUSCULOSKELETAL: No muscle atrophy, erythema, or edema noted. NEURO: Patient was alert and oriented to person place and time. Normal sensation to light and sharp touch. No focal neurological deficits. Course Administered Medications Discontinued Medications Ioversol (Optiray 320 125ml) 116 ml IV ONCE ONE Stop: 01/08/24 22:19 Last Admin: 01/08/24 22:19 Dose: 116 ml Documented By: UDAY Ondansetron HCl (Ondansetron Inj 2 Mg/Ml 2 Ml Vial) 4 mg IV NOW STA Stop: 01/08/24 22:03 Last Admin: 01/08/24 22:49 Dose: 4 mg Documented By: DEBRA Medical Decision Making Medical Records Attestation: I reviewed the patient's medical records. Home Medications Current Medication List: was personally reviewed by me Laboratory Data Attestation: I reviewed the patient's lab results. 01/08/24 21:56 01/08/24 21:56 Lab Results 01/08/24 01/08/24 01/08/24 Range/Units 21:56 22:03 22:48 WBC 12.14 H (4.8-10.8) K/ul RBC 5.24 (4.70-6.10) M/uL Hgb 16.2 (14.0-18.0) g/dl POC Hgb 15.3 (14.0-18.0) g/dl Hct 44.2 (42.0-52.0) % POC Hct 45 (42-52) % MCV 84.4 (80.0-100.0) fL MCH 30.9 (25.0-34.0) pg MCHC 36.7 H (32.0-36.0) g/dL RDW Std Deviation 37.7 (36.4-46.3) fL RDW Coeff of Radha 12.5 (11.5-14.5) % Plt Count 183 (130-400) K/uL MPV 11.4 (9.4-12.4) fL Immature Gran % (Auto) 0.3 % Neut % (Auto) 80.5 % Lymph % (Auto) 11.5 % Borden % (Auto) 5.6 % Eos % (Auto) 1.9 % Baso % (Auto) 0.2 % Neut # (Auto) 9.77 H (1.40-6.50) K/uL Lymph # (Auto) 1.40 (1.20-3.40) K/uL Borden # (Auto) 0.68 H (0.11-0.59) K/uL Eos # (Auto) 0.23 (0.00-0.50) K/uL Baso # (Auto) 0.02 (0.00-0.20) K/uL Immature Gran # (Auto) 0.04 (0.01-0.20) K/uL PT 10.7 (9.0-12.0) Seconds INR 1.0 (0.9-1.1) POC Sodium 139 (135-144) mmol/L Sodium 138 (136-145) mmol/L POC Potassium 4.0 (3.3-5.0) mmol/L Potassium 4.0 (3.5-5.1) mmol/L POC Chloride 102 (101-112) mmol/L Chloride 104 (98-107) mmol/L Carbon Dioxide 29 (21-32) mmol/L POC Total CO2 25 (24-31) mmol/L Anion Gap 5 (3-11) POC Anion Gap 18.0 (16-25) mmol/L POC BUN 15 (7-18) mg/dl BUN 16 (6-23) mg/dl Creatinine 0.80 (0.6-1.4) mg/dl POC Creatinine 0.8 (0.6-1.3) mg/dl Est Cr Clr Drug Dosing 124.0 ml/min eGFR 115.45 BUN/Creatinine Ratio 20.0 (10-20) Glucose 95 (70-99(Fasting)) mg/dl POC Glucose (other) 96 (70-99) mg/dl Calcium 9.2 (8.6-10.3) mg/dl POC Ioniz Calcium Errol 1.18 (1.12-1.32) mmol/l Magnesium 1.9 (1.7-2.4) mg/dl Total Bilirubin 0.5 (0.2-1.0) mg/dl AST 39 (13-39) U/L ALT 57 H (7-52) U/L Alkaline Phosphatase 65 (34-104) U/L Total Creatine Kinase 145 (30-223) U/L Troponin I High Sens 3.7 (0-20) pg/ml Total Protein 7.1 (6.0-8.3) gm/dl Albumin 4.4 (3.4-5.0) gm/dl Globulin 2.7 (2.5-4.0) gm/dl Albumin/Globulin Ratio 1.6 (0.9-2) Lipase 23 (11-82) U/L Salicylates < 3.0 L (3.0-30) mg/dl Acetaminophen < 3 L (10-30) ug/ml Ethyl Alcohol mg/dL < 10.0 (<10.0) mg/dl Imaging Data Attestation: I personally reviewed and interpreted this imaging study as follows: Radiologist's Impression: Abdomen/Pelvis CT 01/08/24 22:02 Exam(s): CT ABDOMEN + PELVIS With Contrast EXAM: CT Abdomen and Pelvis With Intravenous Contrast CLINICAL HISTORY: Reason for exam: abd pain, SI, hanging. TECHNIQUE: Axial computed tomography images of the abdomen and pelvis with intravenous contrast. CTDI is 22.37 mGy and DLP is 1192.36 mGy-cm. Automated exposure control was utilized for the study. A dose lowering technique was utilized adhering to the principles of ALARA. CONTRAST: IV contrast is given COMPARISON: None. FINDINGS: Lung bases: See separately dictated chest CT. Liver: Fatty. Gallbladder and bile ducts: Normal gallbladder. No ductal dilation. Pancreas: No ductal dilation. Spleen: Unremarkable. Adrenals: Unremarkable. Kidneys and ureters: No pyelonephritis or hydronephrosis. Stomach and bowel: Moderate to severe fecal loading of the colon. No obstruction. Intraperitoneal space: No free air or fluid. Bones/joints: No acute fracture. Soft tissues: Unremarkable. Vasculature: No aortic aneurysm, end-organ infarct or ischemic change.. Lymph nodes: No enlarged lymph nodes. Bladder: No stones. Reproductive: Unremarkable as visualized. IMPRESSION: 1. No acute abnormality. 2. No SBO, free air or free fluid. Electronically signed by: Jennifer Beltran M.D. 01/08/24 22:[address] 01/08/24 22:02 Exam(s): CT HEAD Without Contrast EXAM: CT Head Without Intravenous Contrast CLINICAL HISTORY: Reason for exam: SI, BOLAÑOS, OD, hanging. TECHNIQUE: Axial computed tomography images of the head/brain without intravenous contrast. CTDI is 60.65 mGy and DLP is 1098.96 mGy-cm. Automated exposure control was utilized for the study. A dose lowering technique was utilized adhering to the principles of ALARA. COMPARISON: Head CT 08/22/2023 FINDINGS: Brain: No hemorrhage, extra-axial fluid collection, mass effect, or edema. Ventricles: Unremarkable. Bones/joints: Unremarkable. No fracture. Soft tissues: Unremarkable. Sinuses: No acute sinusitis. Mastoid air cells: Unremarkable as visualized. IMPRESSION: 1. No acute intracranial abnormality. Electronically signed by: Osiel Barth MD 01/08/24 22:[address] 01/08/24 22:06 Exam(s): CT CHEST With Contrast IV Amt: 116 ml optiray 320 EXAM: CT Chest With Intravenous Contrast CLINICAL HISTORY: Reason for exam: OD, CP, fall, hanging. TECHNIQUE: Axial computed tomography images of the chest with intravenous contrast. CTDI is 14.21 mGy and DLP is 366.6 mGy-cm. Automated exposure control was utilized for the study. A dose lowering technique was utilized adhering to the principles of ALARA. CONTRAST: Patient received 116 ml optiray 320 of IV contrast COMPARISON: No relevant prior studies available. FINDINGS: Lungs: Lungs are clear. Pleural space: No pleural effusion or pneumothorax. Heart: Heart size is normal. No coronary artery calcifications. Bones/joints: No acute fracture. Soft tissues: Unremarkable. Vasculature: Normal caliber aorta. No dissection. Lymph nodes: Unremarkable. IMPRESSION: No acute findings in the chest. Electronically signed by: Osiel Barth MD 01/08/24 22:51 PM Neck CTA 01/08/24 22:07 Exam(s): CTA NECK With Contrast IV Amt: 116 ml optiray 320 EXAM: CT Angiography Neck With Intravenous Contrast CLINICAL HISTORY: Reason for exam: neck pain, attempted hanging. TECHNIQUE: Routine carotid CT angiography protocol was performed with intravenous contrast. NASCET criteria using the distal ICAs for comparison were used for evaluation of stenoses. CTDI is 12.46 mGy and DLP is 6.23 mGy-cm. Automated exposure control was utilized for the study. A dose lowering technique was utilized adhering to the principles of ALARA. MIP reconstructed images were created and reviewed. CONTRAST: Patient received 116 ml optiray 320 of IV contrast COMPARISON: None. FINDINGS: Right common carotid artery: Patent. Right internal carotid artery: Patent. Right vertebral artery: Patent. Left common carotid artery: Patent. Left internal carotid artery: Patent. Left vertebral artery: Patent. Essentially codominant. Other: No vessel narrowing or occlusion to suggest dissection or injury. No soft tissue hematoma or cervical spine fracture. IMPRESSION: 1. No vessel occlusion or injury. CAROTID STENOSIS REFERENCE USING NASCET CRITERIA: % ICA stenosis = (1 - narrowest ICA diameter/diameter of distal cervical ICA) x 100. Mild - <50% stenosis. Moderate - 50-69% stenosis. Severe - 70-94% stenosis. Near occlusion - 95-99% stenosis. Occluded - 100% stenosis. Electronically signed by: Jennifer Beltran M.D. 01/08/24 22:56 PM [facility] Narrative Prior records/ancillary studies reviewed. Triage Nursing notes reviewed. Additional history obtained from correctional officers. The patient's history was concerning for intentional overdose Differential diagnosis: Etiologies such as toxicologic, infection, hypoglycemia, electrolyte abnormalities, cardiac sources, intracerebral event, neurologic, as well as others were entertained. Physical examination: The patient had normal sensorium. No trauma noted. ER treatment provided: IV NSS 1 L bolus Poison control was consulted An order was placed for continuous cardiac monitoring. The monitor shows a rate of 60-100 with a sinus rhythm per my interpretation. Suicide precautions were implemented On reassessment the patient was stable and improving. Diagnostic interpretation by me: ECG: ordered for overdose The electrocardiogram was negative for pathologic change. There was no QRS widening or interval prolongation. Normal sinus, normal intervals, no acute ST- T wave changes. Impression normal sinus rhythm independently interpreted by myself The labs Independently Interpreted by myself revealed negative Tylenol and salicylate. Stable H&H. Imaging studies: Chest x-ray with no acute consolidation, pneumothorax or free air per my independent interpretation CTs reviewed and read by radiology as above Consultation: A consultation was placed with Poison Control. The recommendations were for they recommend observation of 12 hours as the patient took Effexor and 8 hours for taking the lisinopril. They recommend labs and EKG and repeat EKG in 4 to 6 hours. A consultation was placed with the hospitalist. The case was discussed and diagnostics were reviewed. The patient was evaluated in the ER for further treatment. This appears to be consistent with an overdose. Poison control recommends observing for 12 hours as the patient took Effexor and the lisinopril. They recommend getting an EKG and repeating it in 4 to 6 hours. This was ordered. Imaging was negative. Stable labs. Medicine is consulted and the case is discussed. Patient will be evaluated by the hospitalist for observation status. By the evaluation outlined above emergent etiologies such as infection, hypoglycemia, electrolyte abnormalities, cardiac sources, intracerebral event, neurologic,as well as others were deemed relatively unlikely. The pt informed about the findings as listed above. All questions were answered and pleased with the treatment. The chart was completed utilizing [employer] Speech voice recognition software. Grammatical errors, random word insertions, pronoun errors, and incomplete sentences are an occassional consequence of this system due to software limitations, ambient noise, and hardware issues. Any formal questions or concerns about the content, text, or information contained within the body of this dictation should be directly addressed to the physician rn first assistant for clarification. Impression & Plan Suicide attempt by multiple drug overdose, Suicide attempt by hanging Discharge Plan Visit Data Chief Complaint: Overdose (Intentional) ED Provider: Darius Loredo ED Midlevel Provider: Carito Rubio Discharge Problem: Suicide attempt by multiple drug overdose, Suicide attempt by hanging Patient Disposition: Being Evaluated by Hospitalist Condition: Good Forms Stand Alone Forms: My [facility], Suicide Prevention Resources Prescriptions Prescriptions: No Action atorvastatin [Lipitor] 10 mg Tablet 10 mg PO HS Rx Instructions: CRUSH ALL MEDS famotidine [Pepcid] 20 mg Tablet 20 mg PO HS Rx Instructions: CRUSH ALL MEDS lisinopril 20 mg Tablet 20 mg PO QAM meclizine 12.5 mg Tablet 12.5 mg PO TID PRN (Reason: Dizziness) lacosamide [Vimpat] 100 mg Tablet 100 mg PO BID venlafaxine 75 mg Tablet 150 mg PO BID Rx Instructions: 2 TABLET DOSE naproxen 500 mg Tablet 500 mg PO BID PRN (Reason: Pain) Referrals Referrals: Charles HENRY [Primary Care Provider] - Discharge Problem: Suicide attempt by multiple drug overdose Qualifiers: Encounter type: initial encounter Qualified Code(s): T50.912A - Poisoning by multiple unspecified drugs, medicaments and biological substances, intentional self-harm, initial encounter
[2024-01-08 22:29] LABS: Basophils # (auto) 0.02 K/uL (0.00-0.20); Basophils % (auto) 0.2 %; Eosinophils # (auto) 0.23 K/uL (0.00-0.50); Eosinophils % (auto) 1.9 %; Hematocrit (blood only) 44.2 % (42.0-52.0); Hemoglobin 16.2 g/dl (14.0-18.0); Immature Granulocytes # (auto) 0.04 K/uL (0.01-0.20); Immature Granulocytes % (auto) 0.3 %; Lymphocytes % (auto) 11.5 %; Mean Corpuscular Hemoglobin 30.9 pg (25.0-34.0); Mean Corpuscular Hgb Conc 36.7 g/dL (32.0-36.0); Mean Corpuscular Volume 84.4 fL (80.0-100.0); Mean Platelet Volume 11.4 fL (9.4-12.4); Monocytes # (auto) 0.68 K/uL (0.11-0.59); Monocytes % (auto) 5.6 %; Neutrophils # (auto) 9.77 K/uL (1.40-6.50); Neutrophils % (auto) 80.5 %; Platelet Count 183 K/uL (130-400); RDW Coefficient of Variation 12.5 % (11.5-14.5); RDW Standard Deviation 37.7 fL (36.4-46.3); Red Blood Count 5.24 M/uL (4.70-6.10); White Blood Count 12.14 K/ul (4.8-10.8)
--- NOTE | 2024-01-08 22:43 | CT Scan Report ---
Exam(s): CT HEAD Without Contrast EXAM: CT Head Without Intravenous Contrast CLINICAL HISTORY: Reason for exam: SI, BOLAÑOS, OD, hanging. TECHNIQUE: Axial computed tomography images of the head/brain without intravenous contrast. CTDI is 60.65 mGy and DLP is 1098.96 mGy-cm. Automated exposure control was utilized for the study. A dose lowering technique was utilized adhering to the principles of ALARA. COMPARISON: Head CT 08/22/2023 FINDINGS: Brain: No hemorrhage, extra-axial fluid collection, mass effect, or edema. Ventricles: Unremarkable. Bones/joints: Unremarkable. No fracture. Soft tissues: Unremarkable. Sinuses: No acute sinusitis. Mastoid air cells: Unremarkable as visualized. IMPRESSION: 1. No acute intracranial abnormality. Electronically signed by: Osiel Barth MD 01/08/24 22:42 PM
[2024-01-08 22:47] LABS: Albumin Globulin Ratio 1.6 (0.9-2); Albumin Level 4.4 gm/dl (3.4-5.0); Bilirubin,Total 0.5 mg/dl (0.2-1.0); Calcium 9.2 mg/dl (8.6-10.3); Globulin 2.7 gm/dl (2.5-4.0); Magnesium 1.9 mg/dl (1.7-2.4); Total Protein 7.1 gm/dl (6.0-8.3)
[2024-01-08] MEDS: ONDANSETRON INJ 2 MG/ML 2 ML VIAL IV STA (22:49)
--- NOTE | 2024-01-08 22:52 | CT Scan Report ---
Exam(s): CT CHEST With Contrast IV Amt: 116 ml optiray 320 EXAM: CT Chest With Intravenous Contrast CLINICAL HISTORY: Reason for exam: OD, CP, fall, hanging. TECHNIQUE: Axial computed tomography images of the chest with intravenous contrast. CTDI is 14.21 mGy and DLP is 366.6 mGy-cm. Automated exposure control was utilized for the study. A dose lowering technique was utilized adhering to the principles of ALARA. CONTRAST: Patient received 116 ml optiray 320 of IV contrast COMPARISON: No relevant prior studies available. FINDINGS: Lungs: Lungs are clear. Pleural space: No pleural effusion or pneumothorax. Heart: Heart size is normal. No coronary artery calcifications. Bones/joints: No acute fracture. Soft tissues: Unremarkable. Vasculature: Normal caliber aorta. No dissection. Lymph nodes: Unremarkable. IMPRESSION: No acute findings in the chest. Electronically signed by: Osiel Barth MD 01/08/24 22:51 PM
[2024-01-08 22:53] LABS: Acetaminophen < 3 ug/ml (10-30); Salicylate < 3.0 mg/dl (3.0-30); Troponin I High Sensitivity 3.7 pg/ml (0-20)
--- NOTE | 2024-01-08 22:54 | CT Scan Report ---
Exam(s): CT ABDOMEN + PELVIS With Contrast EXAM: CT Abdomen and Pelvis With Intravenous Contrast CLINICAL HISTORY: Reason for exam: abd pain, SI, hanging. TECHNIQUE: Axial computed tomography images of the abdomen and pelvis with intravenous contrast. CTDI is 22.37 mGy and DLP is 1192.36 mGy-cm. Automated exposure control was utilized for the study. A dose lowering technique was utilized adhering to the principles of ALARA. CONTRAST: IV contrast is given COMPARISON: None. FINDINGS: Lung bases: See separately dictated chest CT. Liver: Fatty. Gallbladder and bile ducts: Normal gallbladder. No ductal dilation. Pancreas: No ductal dilation. Spleen: Unremarkable. Adrenals: Unremarkable. Kidneys and ureters: No pyelonephritis or hydronephrosis. Stomach and bowel: Moderate to severe fecal loading of the colon. No obstruction. Intraperitoneal space: No free air or fluid. Bones/joints: No acute fracture. Soft tissues: Unremarkable. Vasculature: No aortic aneurysm, end-organ infarct or ischemic change.. Lymph nodes: No enlarged lymph nodes. Bladder: No stones. Reproductive: Unremarkable as visualized. IMPRESSION: 1. No acute abnormality. 2. No SBO, free air or free fluid. Electronically signed by: Jennifer Beltran M.D. 01/08/24 22:53 PM
--- NOTE | 2024-01-08 22:57 | CT Scan Report ---
Exam(s): CTA NECK With Contrast IV Amt: 116 ml optiray 320 EXAM: CT Angiography Neck With Intravenous Contrast CLINICAL HISTORY: Reason for exam: neck pain, attempted hanging. TECHNIQUE: Routine carotid CT angiography protocol was performed with intravenous contrast. NASCET criteria using the distal ICAs for comparison were used for evaluation of stenoses. CTDI is 12.46 mGy and DLP is 6.23 mGy-cm. Automated exposure control was utilized for the study. A dose lowering technique was utilized adhering to the principles of ALARA. MIP reconstructed images were created and reviewed. CONTRAST: Patient received 116 ml optiray 320 of IV contrast COMPARISON: None. FINDINGS: Right common carotid artery: Patent. Right internal carotid artery: Patent. Right vertebral artery: Patent. Left common carotid artery: Patent. Left internal carotid artery: Patent. Left vertebral artery: Patent. Essentially codominant. Other: No vessel narrowing or occlusion to suggest dissection or injury. No soft tissue hematoma or cervical spine fracture. IMPRESSION: 1. No vessel occlusion or injury. CAROTID STENOSIS REFERENCE USING NASCET CRITERIA: % ICA stenosis = (1 - narrowest ICA diameter/diameter of distal cervical ICA) x 100. Mild - <50% stenosis. Moderate - 50-69% stenosis. Severe - 70-94% stenosis. Near occlusion - 95-99% stenosis. Occluded - 100% stenosis. Electronically signed by: Jennifer Beltran M.D. 01/08/24 22:56 PM
[2024-01-08 23:28] LABS: Prothrombin Time 10.7 Seconds (9.0-12.0)
--- NOTE | 2024-01-08 23:55 | History & Physical Report ---
Date of Service January 08, 2024 Assessment & Plan (1) Suicide attempt by multiple drug overdose: Plan: (MERI inhibitor, statin, SSRI, and meclizine Rx) hx mood disorder/antisocial personality disorder/borderline personality disorder hypertension, currently stable hyperlipidemia, on statin Rx seizure disorder/history traumatic brain injury, stable on Vimpat past tobacco/alcohol abuse OBS Medical telemetry given tachycardia and lisinopril ingestion IVF Hold lisinopril, statin, Effexor, and meclizine Rx for now Follow poison control recommendations. (Observed for 12 hrs. as per toxicology recommendations as per ED provider.) Psych consult re: suicidality DVT prophylaxis. SCDs Full code Text document was generated using [employer] voice recognition software. It may contain grammatical or spelling errors. Kindly contact undersigned for clarification of any documentation item in question. History of Present Illness Chief Complaint: Drug overdose, attempted self hanging Primary Care Provider: [facility] History obtained from patient and records. Medical history significant for hypertension, hyperlipidemia, GERD, seizure disorder, history traumatic brain injury,, mood disorder, antisocial personality disorder, borderline personality disorder, past tobacco/alcohol abuse. Last confinement May 2023 for breakthrough seizure. Patient discharged on new Vimpat medication. Patient undergoing more stress at correctional facility the last few weeks. Patient claims to being harassed by other inmates. Tonight he took a combination of multiple tablets of lisinopril, Lipitor, Effexor, and meclizine tablets. Subsequent emesis. Denies headache, chest bassem n, SOB, abdominal pain. Patient later attempted to hang himself with a sheet. Medical History as above Surgical History : None Family History : DM Personal/Social history : Past tobacco/alcohol abuse as per records, prior work in [employer] Allergies Allergy/AdvReac Type Severity Reaction Status Date / Time aripiprazole [From Abilify] Allergy Severe ON SCI Verified 01/08/24 23:02 [facility] Fish Containing Products Allergy Severe ON SCI Verified 01/08/24 23:02 [facility] Home Medications Medication Instructions Recorded Confirmed Type atorvastatin 10 mg tablet (Lipitor) 10 mg PO HS 06/05/23 01/08/24 History famotidine 20 mg tablet (Pepcid) 20 mg PO HS 06/05/23 01/08/24 History lacosamide 100 mg tablet (Vimpat) 100 mg PO BID 01/08/24 01/08/24 History lisinopril 20 mg tablet 20 mg PO QAM 01/08/24 01/08/24 History meclizine 12.5 mg tablet 12.5 mg PO TID PRN Dizziness 01/08/24 01/08/24 History naproxen 500 mg tablet 500 mg PO BID PRN Pain 01/08/24 01/08/24 History venlafaxine 75 mg tablet 150 mg PO BID 01/08/24 01/08/24 History Past Med/Surg History Problem List (Updated 01/08/24 @ 23:36 by Carito Ruibo PA-C) Suicide attempt by hanging (Acute) Suicide attempt by multiple drug overdose (Acute) Intractable seizure disorder (Acute) Epileptic seizure (Acute) Status epilepticus (Acute) GERD (gastroesophageal reflux disease) HLD (hyperlipidemia) Seizure HTN (hypertension) Medical History TBI (traumatic brain injury) Seizure disorder Social History Smoking Status: Current every day smoker Tobacco Type: Cigarettes Do You Dip or Chew Tobacco: No; Hx Alcohol Use: No Hx Substance Use: No Preferred Language: Guamanian Communication Ability: Effective On Site Wastewater Systems Technician Required: No Beliefs That Will Affect Care: None Current Living Situation: Other Current Living Situation Comment: [facility] [place] Feels Safe at Home: Yes Assistive Devices: None Review of Systems Review of Systems: As per HPI, all other systems reviewed and negative Physical Exam Physical Exam: GENERAL: Anxious, uncomfortable, no respiratory distress SKIN: Normal color, warm HEENT: [place] palpebral conjunctivae, no ptosis, dry buccal mucosa NECK : Abrasions over neck, supple, minimal cervical tenderness CHEST : CTA, no tenderness HEART : RRR, no obvious murmurs ABDOMEN: Some distention, nontender EXTREMITIES : No LE swelling/tenderness, no other conspicuous deformities noted NEUROLOGIC : Coherent, no facial asymmetry, no other gross focality Results & Data Results & Data Vital Signs (Past 12 Hours) Vital Signs Temp Pulse Pulse Resp BP BP Pulse Ox 01/08/24 22:05 37.3 C 104 H 20 132/95 96 01/08/24 22:05 96 01/08/24 22:02 104 H 20 96 01/08/24 21:53 98 H 01/08/24 21:29 37.3 C 101 H 20 132/95 95 O2 Del Method 01/08/24 22:05 Room Air 01/08/24 22:05 Room Air 01/08/24 22:02 Room Air 01/08/24 21:53 01/08/24 21:29 Room Air Laboratory Results Laboratory Results WBC 12.14 K/ul (4.8-10.8) H 01/08/24 21:56 RBC 5.24 M/uL (4.70-6.10) 01/08/24 21:56 Hgb 16.2 g/dl (14.0-18.0) 01/08/24 21:56 POC Hgb 15.3 g/dl (14.0-18.0) 01/08/24 22:03 Hct 44.2 % (42.0-52.0) 01/08/24 21:56 POC Hct 45 % (42-52) 01/08/24 22:03 MCV 84.4 fL (80.0-100.0) 01/08/24 21:56 MCH 30.9 pg (25.0-34.0) 01/08/24 21:56 MCHC 36.7 g/dL (32.0-36.0) H 01/08/24 21:56 RDW Std Deviation 37.7 fL (36.4-46.3) 01/08/24 21:56 RDW Coeff of Radha 12.5 % (11.5-14.5) 01/08/24 21:56 Plt Count 183 K/uL (130-400) 01/08/24 21:56 MPV 11.4 fL (9.4-12.4) 01/08/24 21:56 Immature Gran % (Auto) 0.3 % 01/08/24 21:56 Neut % (Auto) 80.5 % 01/08/24 21:56 Lymph % (Auto) 11.5 % 01/08/24 21:56 [place] % (Auto) 5.6 % 01/08/24 21:56 Eos % (Auto) 1.9 % 01/08/24 21:56 Baso % (Auto) 0.2 % 01/08/24 21:56 Neut # (Auto) 9.77 K/uL (1.40-6.50) H 01/08/24 21:56 Lymph # (Auto) 1.40 K/uL (1.20-3.40) 01/08/24 21:56 [place] # (Auto) 0.68 K/uL (0.11-0.59) H 01/08/24 21:56 Eos # (Auto) 0.23 K/uL (0.00-0.50) 01/08/24 21:56 Baso # (Auto) 0.02 K/uL (0.00-0.20) 01/08/24 21:56 Immature Gran # (Auto) 0.04 K/uL (0.01-0.20) 01/08/24 21:56 PT 10.7 Seconds (9.0-12.0) 01/08/24 21:56 INR 1.0 (0.9-1.1) 01/08/24 21:56 POC Sodium 139 mmol/L (135-144) 01/08/24 22:03 Sodium 138 mmol/L (136-145) 01/08/24 21:56 POC Potassium 4.0 mmol/L (3.3-5.0) 01/08/24 22:03 Potassium 4.0 mmol/L (3.5-5.1) 01/08/24 21:56 POC Chloride 102 mmol/L (101-112) 01/08/24 22:03 Chloride 104 mmol/L (98-107) 01/08/24 21:56 Carbon Dioxide 29 mmol/L (21-32) 01/08/24 21:56 POC Total CO2 25 mmol/L (24-31) 01/08/24 22:03 Anion Gap 5 (3-11) 01/08/24 21:56 POC Anion Gap 18.0 mmol/L (16-25) 01/08/24 22:03 POC BUN 15 mg/dl (7-18) 01/08/24 22:03 BUN 16 mg/dl (6-23) 01/08/24 21:56 Creatinine 0.80 mg/dl (0.6-1.4) 01/08/24 21:56 POC Creatinine 0.8 mg/dl (0.6-1.3) 01/08/24 22:03 Est Cr Clr Drug Dosing 124.0 ml/min 01/08/24 21:56 eGFR 115.45 01/08/24 21:56 BUN/Creatinine Ratio 20.0 (10-20) 01/08/24 21:56 Glucose 95 mg/dl (70-99(Fasting)) 01/08/24 21:56 POC Glucose (other) 96 mg/dl (70-99) 01/08/24 22:03 Calcium 9.2 mg/dl (8.6-10.3) 01/08/24 21:56 POC Ioniz Calcium Errol 1.18 mmol/l (1.12-1.32) 01/08/24 22:03 Magnesium 1.9 mg/dl (1.7-2.4) 01/08/24 21:56 Total Bilirubin 0.5 mg/dl (0.2-1.0) 01/08/24 21:56 AST 39 U/L (13-39) 01/08/24 21:56 ALT 57 U/L (7-52) H 01/08/24 21:56 Alkaline Phosphatase 65 U/L (34-104) 01/08/24 21:56 Total Creatine Kinase 145 U/L (30-223) 01/08/24 21:56 Troponin I High Sens 3.7 pg/ml (0-20) 01/08/24 21:56 Total Protein 7.1 gm/dl (6.0-8.3) 01/08/24 21:56 Albumin 4.4 gm/dl (3.4-5.0) 01/08/24 21:56 Globulin 2.7 gm/dl (2.5-4.0) 01/08/24 21:56 Albumin/Globulin Ratio 1.6 (0.9-2) 01/08/24 21:56 Lipase 23 U/L (11-82) 01/08/24 21:56 Salicylates < 3.0 mg/dl (3.0-30) L 01/08/24 21:56 Acetaminophen < 3 ug/ml (10-30) L 01/08/24 21:56 Ethyl Alcohol mg/dL < 10.0 mg/dl (<10.0) 01/08/24 22:48 Impressions Abdomen/Pelvis CT 01/08/24 22:02 Exam(s): CT ABDOMEN + PELVIS With Contrast EXAM: CT Abdomen and Pelvis With Intravenous Contrast CLINICAL HISTORY: Reason for exam: abd pain, SI, hanging. TECHNIQUE: Axial computed tomography images of the abdomen and pelvis with intravenous contrast. CTDI is 22.37 mGy and DLP is 1192.36 mGy-cm. Automated exposure control was utilized for the study. A dose lowering technique was utilized adhering to the principles of ALARA. CONTRAST: IV contrast is given COMPARISON: None. FINDINGS: Lung bases: See separately dictated chest CT. Liver: Fatty. Gallbladder and bile ducts: Normal gallbladder. No ductal dilation. Pancreas: No ductal dilation. Spleen: Unremarkable. Adrenals: Unremarkable. Kidneys and ureters: No pyelonephritis or hydronephrosis. Stomach and bowel: Moderate to severe fecal loading of the colon. No obstruction. Intraperitoneal space: No free air or fluid. Bones/joints: No acute fracture. Soft tissues: Unremarkable. Vasculature: No aortic aneurysm, end-organ infarct or ischemic change.. Lymph nodes: No enlarged lymph nodes. Bladder: No stones. Reproductive: Unremarkable as visualized. IMPRESSION: 1. No acute abnormality. 2. No SBO, free air or free fluid. Electronically signed by: Jennifer Beltran M.D. 01/08/24 22:[address] 01/08/24 22:02 Exam(s): CT HEAD Without Contrast EXAM: CT Head Without Intravenous Contrast CLINICAL HISTORY: Reason for exam: SI, BOLAÑOS, OD, hanging. TECHNIQUE: Axial computed tomography images of the head/brain without intravenous contrast. CTDI is 60.65 mGy and DLP is 1098.96 mGy-cm. Automated exposure control was utilized for the study. A dose lowering technique was utilized adhering to the principles of ALARA. COMPARISON: Head CT 08/22/2023 FINDINGS: Brain: No hemorrhage, extra-axial fluid collection, mass effect, or edema. Ventricles: Unremarkable. Bones/joints: Unremarkable. No fracture. Soft tissues: Unremarkable. Sinuses: No acute sinusitis. Mastoid air cells: Unremarkable as visualized. IMPRESSION: 1. No acute intracranial abnormality. Electronically signed by: Osiel Barth MD 01/08/24 22:[address] 01/08/24 22:06 Exam(s): CT CHEST With Contrast IV Amt: 116 ml optiray 320 EXAM: CT Chest With Intravenous Contrast CLINICAL HISTORY: Reason for exam: OD, CP, fall, hanging. TECHNIQUE: Axial computed tomography images of the chest with intravenous contrast. CTDI is 14.21 mGy and DLP is 366.6 mGy-cm. Automated exposure control was utilized for the study. A dose lowering technique was utilized adhering to the principles of ALARA. CONTRAST: Patient received 116 ml optiray 320 of IV contrast COMPARISON: No relevant prior studies available. FINDINGS: Lungs: Lungs are clear. Pleural space: No pleural effusion or pneumothorax. Heart: Heart size is normal. No coronary artery calcifications. Bones/joints: No acute fracture. Soft tissues: Unremarkable. Vasculature: Normal caliber aorta. No dissection. Lymph nodes: Unremarkable. IMPRESSION: No acute findings in the chest. Electronically signed by: Osiel Barth MD 01/08/24 22:51 PM Neck CTA 01/08/24 22:07 Exam(s): CTA NECK With Contrast IV Amt: 116 ml optiray 320 EXAM: CT Angiography Neck With Intravenous Contrast CLINICAL HISTORY: Reason for exam: neck pain, attempted hanging. TECHNIQUE: Routine carotid CT angiography protocol was performed with intravenous contrast. NASCET criteria using the distal ICAs for comparison were used for evaluation of stenoses. CTDI is 12.46 mGy and DLP is 6.23 mGy-cm. Automated exposure control was utilized for the study. A dose lowering technique was utilized adhering to the principles of ALARA. MIP reconstructed images were created and reviewed. CONTRAST: Patient received 116 ml optiray 320 of IV contrast COMPARISON: None. FINDINGS: Right common carotid artery: Patent. Right internal carotid artery: Patent. Right vertebral artery: Patent. Left common carotid artery: Patent. Left internal carotid artery: Patent. Left vertebral artery: Patent. Essentially codominant. Other: No vessel narrowing or occlusion to suggest dissection or injury. No soft tissue hematoma or cervical spine fracture. IMPRESSION: 1. No vessel occlusion or injury. CAROTID STENOSIS REFERENCE USING NASCET CRITERIA: % ICA stenosis = (1 - narrowest ICA diameter/diameter of distal cervical ICA) x 100. Mild - <50% stenosis. Moderate - 50-69% stenosis. Severe - 70-94% stenosis. Near occlusion - 95-99% stenosis. Occluded - 100% stenosis. Electronically signed by: Jennifer Beltran M.D. 01/08/24 22:56 PM Diagnostic Findings EKG as per my interpretation : Rate 95, NSR, normal axis, no ischemia (1) Suicide attempt by multiple drug overdose Encounter type: initial encounter Qualified Code(s): T50.912A - Poisoning by multiple unspecified drugs, medicaments and biological substances, intentional self-harm, initial encounter
[2024-01-09] MEDS: SODIUM CHLORIDE 0.9% 1,000 ML IV STA (00:09)
[2024-01-09] MEDS ORDERED: PROMETHAZINE 6.25 MG/50.25 ML BAG IV PRN (00:19)
[2024-01-09] MEDS: ACETAMINOPHEN 325 MG TAB PO STA (01:34)
[2024-01-09] MEDS ORDERED: OLANZapine 10 MG/2.1 ML SDV IM PRN (02:41)
--- NOTE | 2024-01-09 07:01 | XRay Report ---
XR chest 1V portable CLINICAL HISTORY: Overdose. COMPARISON STUDY: Chest radiograph June 05, 2023. Chest CT performed earlier today. FINDINGS: Lung volumes are normal. Lungs are clear. There is no pneumothorax or pleural effusion. Car diac size is normal. Mediastinal contours are normal. There is no evidence for pulmonary edema. IMPRESSION: No acute cardiopulmonary findings. ACT 112: Negative or not required by law. Electronically signed by: Jayson Resendiz M.D. 01/09/2024 6:59 AM
[2024-01-09] MEDS: ACETAMINOPHEN 325 MG TAB PO PRN (07:47)
--- NOTE | 2024-01-09 08:31 | Psychiatric Consultation ---
Date of Consultation January 09, 2024 Impression / Recommendations Impression 38 yo man and inmate at [facility] admitted medically following suicide attempt via ingestion of multiple prescription medications and attempted hanging. They should remain on suicide precautions with one-on-one and guards present pending [facility] to the [facility] on [facility] watch/[facility] safety protocols until evaluated by their treating clinicians there. They are not a candidate for inpatient psychiatric care as they are an inmate and any forensic referrals would be at the discretion of the [facility]. Further psychiatric medication changes are contraindicated at this time due to overdose attempt, lack of information regarding current treatment plans and approach by clinicians at [facility], what medications are available at [facility] and for which acute changes could be counter-therapeutic. Unfortunately prisoners ingest or self injure with items for a variety of reasons, many of which include secondary gain or attempts to manipulate their environment. It's counter-therapeutic to involve multiple psychiatric providers due to splitting. Hospitalist may reach out if specific questions regarding their care. Liaison remains available should an acute behavioral management issue arise while hospitalized (code [email or web address]). Generally goals for management of individuals with suicide attempt or ingestion during incarceration include: -Minimizing reinforcement, treat medical concerns promptly will goals of returning to [facility] once medically stable with increased psychiatric support at [facility] Plan: Patient is an inmate at [facility] admitted for suicide attempt. Suicide precautions with 1-on-1 and can return to [facility] on suicide precautions pending further evaluation there. Please reconsult if acute management issue. (1) Suicide attempt by hanging: (2) Suicide attempt by multiple drug overdose: Encounter type: initial encounter Qualified Code(s): T50.912A - Poisoning by multiple unspecified drugs, medicaments and biological substances, intentional self-harm, initial encounter Psych History Identifying Data 38 yo man and inmate at [facility] admitted medically following suicide attempt via ingestion of multiple prescription medications and attempted hanging. History of Present Illness Tommy reportedly ingested multiple medications he had been storing and attempted to hang himself with a sheet requiring guard intervention at [facility]. Allergies Allergy/AdvReac Type Severity Reaction Status Date / Time aripiprazole [From Abilify] Allergy Severe ON SCI Verified 01/08/24 23:02 [facility] Fish Containing Products Allergy Severe ON SCI Verified 01/08/24 23:02 [facility] Home Medications Medication Instructions Recorded Confirmed Type atorvastatin 10 mg tablet (Lipitor) 10 mg PO HS 06/05/23 01/08/24 History famotidine 20 mg tablet (Pepcid) 20 mg PO HS 06/05/23 01/08/24 History lacosamide 100 mg tablet (Vimpat) 100 mg PO BID 01/08/24 01/08/24 History lisinopril 20 mg tablet 20 mg PO QAM 01/08/24 01/08/24 History meclizine 12.5 mg tablet 12.5 mg PO TID PRN Dizziness 01/08/24 01/08/24 History naproxen 500 mg tablet 500 mg PO BID PRN Pain 01/08/24 01/08/24 History venlafaxine 75 mg tablet 150 mg PO BID 01/08/24 01/08/24 History Patient History Medical History TBI (traumatic brain injury) Seizure disorder Social History Smoking Status: Former smoker Tobacco Type: Cigarettes Do You Dip or Chew Tobacco: No; Hx Alcohol Use: No Hx Substance Use: No Preferred Language: Maltese Communication Ability: Effective Auto Tune Up Mechanic Required: No Beliefs That Will Affect Care: None Current Living Situation: Other Current Living Situation Comment: [facility] [place] Feels Safe at Home: Yes Assistive Devices: None Physical Exam Vital Signs (Past 24 Hours): Last Vital Signs Temp 37.3 C 01/08/24 22:05 Pulse 92 H 01/09/24 07:48 Resp 18 01/09/24 07:48 BP 110/68 01/09/24 07:48 Pulse Ox 97 01/09/24 07:48 O2 Del Method Room Air 01/09/24 07:48 Results & Data (PSY) Medications Administered Acetaminophen (Acetaminophen 325 Mg Tab) 650 mg PO QID PRN PRN Reason: pain/fever Stop: 02/08/24 00:16 Last Admin: 01/09/24 07:47 Dose: 650 mg Documented By: MR Sodium Chloride (Nss) 1,000 mls @ 100 mls/hr IV .Q10H STA Stop: 01/09/24 09:54 Last Admin: 01/09/24 00:09 Dose: 100 mls/hr Documented By: DEBRA Coding Level of Care Code None Diagnoses Suicide attempt by hanging T71.162A Suicide attempt by multiple drug overdose T50.912A Encounter type: initial encounter
--- NOTE | 2024-01-09 08:44 | Electrocardiogram Report ---
Test Reason : Blood Pressure : */* mmHG Vent. Rate : 94 BPM Atrial Rate : 94 BPM P-R Int : 168 ms QRS Dur : 94 ms QT Int : 348 ms P-R-T Axes : 35 57 39 degrees QTcB Int : 435 ms Normal sinus rhythm Normal ECG When compared with ECG of 22-Aug-2023 16:25, No significant change was found Confirmed by Houston Rand ([id number]) on 01/09/2024 8:44:01 AM Referred By: [facility] Confirmed By: Houston Rand
[2024-01-09 09:50] LABS: Appearance Urine Clear (Clear); Bilirubin Urine Negative (Negative); Blood Urine Negative (Negative); Color Urine Yellow; Glucose Urine UA Negative (Negative); Ketones Urine 1+ (Negative); Leukocyte Esterase Urine Negative (Negative); Nitrite Urine Negative (Negative); Protein Urine Negative (Negative); Specific Gravity Urine > 1.045 (1.000-1.030); Urobilinogen Urine Negative (Negative)
[2024-01-09 10:21] LABS: Amphetamines+Metham, Urine Neg (Neg); Barbiturates, Urine Neg (Neg); Benzodiazepine, Urine Neg (Neg); Cocaine, Urine Neg (Neg); Fentanyl, Urine Neg (Neg); MDMA (Ecstacy), Urine Neg (Neg); Marijuana, Urine Neg (Neg); Methadone, Urine Neg (Neg); Opiate, Urine Neg (Neg); Phencyclidine, Urine Neg (Neg)
[2024-01-09] MEDS: LACOSAMIDE 50 MG TABLET PO SCH (10:32)
--- NOTE | 2024-01-09 14:15 | Electrocardiogram Report ---
Test Reason : Blood Pressure : */* mmHG Vent. Rate : 81 BPM Atrial Rate : 81 BPM P-R Int : 148 ms QRS Dur : 104 ms QT Int : 384 ms P-R-T Axes : 53 64 67 degrees QTcB Int : 446 ms Normal sinus rhythm Normal ECG When compared with ECG of 08-Jan-2024 21:43, No significant change Confirmed by Houston Rand ([id number]) on 01/09/2024 2:15:12 PM Referred By: [facility] Confirmed By: Houston Rand
--- NOTE | 2024-01-09 15:18 | Hospitalist Progress Note ---
Date of Service January 09, 2024 Assessment & Plan (1) Suicide attempt by multiple drug overdose: Plan: Suicidal attempt with hanging and drug overdose Patient admits to taking multiple tablets of lisinopril, Lipitor, Effexor and meclizine --CT head:No acute intracranial abnormality. --CXR:No acute cardiopulmonary findings. --CT ABD:No acute abnormality. No SBO, free air or free fluid. --Chest CT:No acute findings in the chest. --Neck CT:No vessel occlusion or injury. Poison control on board Continue suicidal precautions Appreciate psychiatry input Continue gentle IV fluids H/O Mood disorder/antisocial personality disorder/borderline personality disorder Effexor on hold Zyprexa as needed Hypertension Hold lisinopril for now Monitor BP Hyperlipidemia Hold Lipitor for now Monitor Seizure disorder H/O traumatic brain injury On Vimpat H/O Past tobacco/alcohol abuse DVT Px: SCDs CODE STATUS Full code Disposition Correctional facility as able Admission and Anticipated Discharge Date Admission Date: January 08, 2024 Subjective Patient is seen and examined at bedside States having back, neck pain Admits to have suicidal thoughts Denies any chest pain, dyspnea Patient guards at bedside No other complaints Review of Systems Review of Systems: All systems reviewed & are unremarkable except as noted in Subjective Physical Exam Physical Exam: Physical Exam: Vitals signs as noted above General Appearance:Moderately built and nourished, no apparent distress Head: normocephalic, Atraumatic Eyes: normal inspection, EOMI Neck: supple, Trachea midline Respiratory/Chest: Normal breath sounds, CTA, No accessory muscle use Cardiovascular: S1, S2, No murmur Abdomen/GI:Soft, Non tender, Bowel sounds present Extremities/Musculoskeletal:normal inspection, no edema Neurologic/Psych:AAOX3, grossly no focal neurological deficits Skin: normal color, warm Results & Data Results & Data Vital Signs (Past 12 Hours) Vital Signs Pulse Pulse Resp BP BP Pulse Ox O2 Del Method 01/09/24 14:30 91 H 18 111/77 95 Room Air 01/09/24 13:09 81 18 110/74 96 Room Air 01/09/24 07:48 92 H 18 110/68 97 Room Air 01/09/24 07:13 92 H 01/09/24 05:36 90 14 120/63 95 Room Air Laboratory Results Short CBC 01/08/24 Range/Units 21:56 WBC 12.14 H (4.8-10.8) K/ul Hgb 16.2 (14.0-18.0) g/dl Hct 44.2 (42.0-52.0) % Plt Count 183 (130-400) K/uL BMP 01/08/24 21:56 Sodium 138 Potassium 4.0 Chloride 104 Carbon Dioxide 29 BUN 16 Creatinine 0.80 Glucose 95 Calcium 9.2 Cardiac Enzymes 01/08/24 01/09/24 Range/Units 21:56 06:19 Total Creatine Kinase 145 160 (30-223) U/L Liver Function 01/08/24 Range/Units 21:56 Total Bilirubin 0.5 (0.2-1.0) mg/dl AST 39 (13-39) U/L ALT 57 H (7-52) U/L Alkaline Phosphatase 65 (34-104) U/L Albumin 4.4 (3.4-5.0) gm/dl Urine 01/09/24 Range/Units 09:30 Urine Color Yellow Urine Appearance Clear (Clear) Urine pH 7.0 (4.5-7.5) Ur Specific [place] > 1.045 H (1.000-1.030) Urine Protein Negative (Negative) Urine Glucose (UA) Negative (Negative) (1) Suicide attempt by multiple drug overdose Encounter type: initial encounter Qualified Code(s): T50.912A - Poisoning by multiple unspecified drugs, medicaments and biological substances, intentional self-harm, initial encounter
--- NOTE | 2024-01-09 18:15 | Communication Note ---
Date of Service: January 09, 2024 Called to evaluate patient due to complaints of pain and some muscle rigidity. Patient alert and able to answer questions appropriately, no evidence of seizure activity. He reports his last seizure was months ago. His main complaint is neck muscle pain and stiffness due to the fact that he attempted to hang himself. Patient reports he cannot tolerate NSAIDs apparently this caused "muscle rigidity". He requested possible tramadol for pain. I explained to him that tramadol decreases seizure threshold and be very hesitant to prescribe this for him. He is agreeable to this explanation. He states that Flexeril has not worked well for him in the past for muscle relaxers. Physical exam: Musculoskeletal: Significant muscle tenderness, rigidity, spasm of the cervical paravertebral musculature. CV: S1-S2, regular Psych: Cooperative, anxious Plan: Explained to patient that Valium may be a good option for him, it would work as a muscle relaxer, help with some of his anxiety and his pain. Valium 5 mg IV x 1 now Valium 5 mg every 6 hours as needed for pain, muscle spasms, anxiety Scheduled Tylenol for pain control. Reviewed this plan of care with the patient, he is agreeable Bedside nurse updated.
[2024-01-09] MEDS: diazePAM 5 MG/ML 10ML VIAL IV STA (18:40)
[2024-01-09] MEDS: FAMOTIDINE 20 MG TAB PO SCH (20:27)
[2024-01-09] MEDS: ACETAMINOPHEN 325 MG TAB PO SCH (20:27)
--- NOTE | 2024-01-09 23:16 | Communication Note ---
Date of Service: January 09, 2024
[2024-01-09] MEDS ORDERED: NAPROXEN 250 MG TAB PO PRN (23:18)
[2024-01-09] MEDS: diazePAM 5 MG TABLET PO PRN (23:46)
[2024-01-10 04:49] LABS: Hematocrit (blood only) 41.4 % (42.0-52.0); Hemoglobin 14.5 g/dl (14.0-18.0); Mean Corpuscular Hemoglobin 30.3 pg (25.0-34.0); Mean Corpuscular Volume 86.4 fL (80.0-100.0); Mean Platelet Volume 11.2 fL (9.4-12.4); Platelet Count 162 K/uL (130-400); RDW Coefficient of Variation 12.8 % (11.5-14.5); RDW Standard Deviation 39.8 fL (36.4-46.3); Red Blood Count 4.79 M/uL (4.70-6.10)
[2024-01-10 05:16] LABS: BUN Creatinine Ratio 23.8 (10-20); Calcium 8.8 mg/dl (8.6-10.3); Creatinine Clr Calc Pharmacy 118.1 ml/min; Potassium 3.8 mmol/L (3.5-5.1)
[2024-01-10 09:30] VITALS: RESP 13; O2SAT 97
--- NOTE | 2024-01-10 14:02 | Hospitalist Progress Note ---
Date of Service January 10, 2024 Assessment & Plan (1) Suicide attempt by multiple drug overdose: Plan: Suicidal attempt with hanging and drug overdose Patient admits to taking multiple tablets of lisinopril, Lipitor, Effexor and meclizine --CT head:No acute intracranial abnormality. --CXR:No acute cardiopulmonary findings. --CT ABD:No acute abnormality. No SBO, free air or free fluid. --Chest CT:No acute findings in the chest. --Neck CT:No vessel occlusion or injury. Appreciate Poison control input Continue suicidal precautions Appreciate psychiatry input Received IV fluids Plan to discharge back to correctional facility today H/O Mood disorder/antisocial personality disorder/borderline personality disorder Effexor on hold Zyprexa as needed Hypertension Hold lisinopril for now BP stable Hyperlipidemia Hold Lipitor for now Monitor Seizure disorder H/O traumatic brain injury On Vimpat H/O Past tobacco/alcohol abuse DVT Px: SCDs CODE STATUS Full code Disposition Correctional facility Admission and Anticipated Discharge Date Admission Date: January 08, 2024 Subjective Patient is seen and examined at bedside States feeling a lot better today Denies any pain or discomfort Also denies any chest pain, dyspnea, nausea, vomiting, abdominal pain Discussed with psychiatry today Updated patient's medical team at correctional facility over the phone Review of Systems Review of Systems: All systems reviewed & are unremarkable except as noted in Subjective Physical Exam Physical Exam: Physical Exam: Vitals signs as noted above General Appearance:Moderately built and nourished, no apparent distress Head: normocephalic, Atraumatic Eyes: normal inspection, EOMI Neck: supple, Trachea midline Respiratory/Chest: Normal breath sounds, CTA, No accessory muscle use Cardiovascular: S1, S2, No murmur Abdomen/GI:Soft, Non tender, Bowel sounds present Extremities/Musculoskeletal:normal inspection, no edema Neurologic/Psych:AAOX3, grossly no focal neurological deficits Skin: normal color, warm Results & Data Results & Data Vital Signs (Past 12 Hours) Vital Signs Pulse Pulse Resp BP BP Pulse Ox Pulse Ox 01/10/24 09:00 78 13 114/67 97 01/10/24 08:00 80 12 127/69 96 01/10/24 07:00 78 17 119/75 95 01/10/24 06:00 81 16 107/65 95 01/10/24 06:00 84 16 107/65 96 01/10/24 06:00 81 15 107/65 95 01/10/24 05:00 67 16 122/74 98 01/10/24 04:03 86 18 95 01/10/24 04:00 117/76 01/10/24 03:00 115/74 01/10/24 03:00 76 20 115/74 98 01/10/24 03:00 72 16 115/74 94 01/10/24 02:27 95 01/10/24 02:15 79 23 96 01/10/24 02:00 107/62 O2 Del Method O2 Del Method 01/10/24 09:00 01/10/24 08:00 01/10/24 07:00 01/10/24 06:00 Room Air 01/10/24 06:00 Room Air 01/10/24 06:00 Room Air 01/10/24 05:00 Room Air 01/10/24 04:03 Room Air 01/10/24 04:00 01/10/24 03:00 01/10/24 03:00 Room Air 01/10/24 03:00 Room Air 01/10/24 02:27 Room Air 01/10/24 02:15 Room Air 01/10/24 02:00 Laboratory Results Short CBC 01/10/24 Range/Units 04:31 WBC 6.80 (4.8-10.8) K/ul Hgb 14.5 (14.0-18.0) g/dl Hct 41.4 L (42.0-52.0) % Plt Count 162 (130-400) K/uL BMP 01/10/24 04:31 Sodium 139 Potassium 3.8 Chloride 107 Carbon Dioxide 29 BUN 20 Creatinine 0.84 Glucose 114 H Calcium 8.8 (1) Suicide attempt by multiple drug overdose Encounter type: initial encounter Qualified Code(s): T50.912A - Poisoning by multiple unspecified drugs, medicaments and biological substances, intentional self-harm, initial encounter
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
--- NOTE | 2024-01-10 14:16 | Electrocardiogram Report ---
Test Reason : Blood Pressure : */* mmHG Vent. Rate : 90 BPM Atrial Rate : 90 BPM P-R Int : 156 ms QRS Dur : 96 ms QT Int : 362 ms P-R-T Axes : 68 78 74 degrees QTcB Int : 442 ms Normal sinus rhythm Normal ECG When compared with ECG of 09-Jan-2024 09:26, No significant change was found Confirmed by Houston Rand ([id number]) on 01/10/2024 2:15:50 PM Referred By: [facility] Confirmed By: Houston Rand
[2024-01-10 15:35] VITALS: BP 107/65
[2024-01-10 19:03] VITALS: PULSE 72
[2024-01-10] MEDS ORDERED: ATORVASTATIN 10 MG TAB PO SCH (21:00)
== END 2024-01-10 15:33 ==
LOC: ED 21:32 → EDINP 21:32
DX: E78.5 Hyperlipidemia, unspecified; Z87.891 Personal history of nicotine dependence; T71.162A Asphyxiation due to hanging, intentional self-harm, initial encounter; Z86.718 Personal history of other venous thrombosis and embolism; Z88.8 Allergy status to other drugs, medicaments and biological substances; I10 Essential (primary) hypertension; T50.912A Poisoning by multiple unspecified drugs, medicaments and biological substances, intentional self-harm, initial encounter; Z91.013 Allergy to seafood; R56.9 Unspecified convulsions; Z79.899 Other long term (current) drug therapy